=== PATIENT | male | born 1945 | race Caucasian/White ===

== ENCOUNTER → 2018-07-26 12:00 | Outpatient (CLI) | payer MEDICARE, OTHER, SELFPAY ==
[2018-07-26 13:25] LABS: Add Manual Diff / Slide Review NO; Basophils Percent Auto 0.7 % (0-2); Eosinophils Percent Auto 2.7 % (2-4); Hematocrit 39.7 % (41-53); Hemoglobin 13.4 g/dL (13.5-17.5); Lymphocytes Percent Auto 30.1 % (25-40); Mean Corpuscular HGB Conc 33.6 % (30-36); Mean Corpuscular Hemoglobin 30.8 PG (26-34); Mean Corpuscular Volume 91.6 fL (80-100); Monocytes Percent Auto 10.6 % (3-14); Neutrophils Absolute Auto 2700 /uL (3000-5900); Neutrophils Percent Auto 55.9 % (50-75); Platelet Count 181 X10^3/uL (150-400); Red Blood Cell Count 4.33 X10^6/uL (4.5-5.9); Red Cell Distribution Width 17.9 % (11.6-14.8); White Blood Cell Count 4.8 X10^3/uL (4.5-11.0)
[2018-07-26 13:43] LABS: Alanine Aminotransferase 28 IU/L (21-72); Albumin 4.1 g/dL (3.5-5.0); Albumin Globulin Ratio 1.3 (1.0-2.8); Alkaline Phosphatase 73 U/L (38-126); Aspartate Aminotransferase 28 IU/L (17-59); BUN Creatinine Ratio 14.5 (6-22); Bilirubin Total 0.5 mg/dL (0.2-1.3); Blood Urea Nitrogen 16 mg/dL (9-20); C-Reactive Protein Quant < 0.5 mg/dL (<1.0); Calcium 9.1 mg/dL (8.4-10.2); Carbon Dioxide 31 mmol/L (22-32); Chloride 103 mmol/L (98-107); Estimated Glomerular Filt Rate > 60.0 mL/min (>60); Globulin 3.2 g/dL (1.7-4.1); Glucose 100 mg/dL (80-110); HEMOLYSIS < 15 (0-50); Potassium 4.7 mmol/L (3.4-5.1); Sodium 141 mmol/L (137-145); Total Protein 7.3 g/dL (6.3-8.2)
[2018-07-26 13:46] LABS: Erythrocyte Sedimentation Rate 15 MM/HR (0-15)
== END ==
PROVIDERS: Family Provider Internal Medicine; PCP Internal Medicine; Visit Provider Internal Medicine
DX: M06.9 Rheumatoid arthritis, unspecified (principal); I10 Essential (primary) hypertension
CPT/HCPCS: 36415; 80053; 85025; 85651; 86140

== ENCOUNTER 2024-07-20 15:05 | Emergency (ER) | payer MEDICARE, OTHER, SELFPAY ==
[2024-07-20 15:14] VITALS: BP 183/84; PULSE 69; RESP 20; TEMP 36.3; O2SAT 100; BMI 40.8
--- NOTE | 2024-07-20 15:39 | ED.GENADULT ---
HPI - General Adult General Chief complaint: Abdominal Pain Stated complaint: abd px Time Seen by Provider: 07/20/24 15:26 Source: patient Mode of arrival: Ambulatory History of Present Illness HPI narrative: Patient is an 79-year-old male who is here for evaluation of generalized abdominal pain. For the past several weeks he states that he has been having issues with constipation. He has been taking stool softeners on a daily basis. He did have a bowel movement within the past 48 hours but states that it was much smaller than normal and feels like he did not have a complete bowel movement. He has had no change in his urinary issues which is urinary frequency and hesitancy. He had had 1 episode of nausea but no related vomiting. No fevers. He has had a bowel resection in the past after 2 polyps were found on a colonoscopy. He states they were noncancerous. That was approximately 15 years ago. Related Data Allergies Allergy/AdvReac Type Severity Reaction Status Date / Time No Known Drug Allergies Allergy Verified 07/20/24 15:13 Review of Systems Review of Systems Narrative: Dr Almaraz Co-Sign Statement: I was available for consultation during this patient's emergency department visit. This chart is signed by myself for administrative purposes only. I did not have direct contact with this patient during this visit. They were seen independently by the APC. Patient History Social History Smoking Status: Former smoker Smoking Status: Former smoker alcohol intake frequency: 0-2 drinks per day Alcohol type: beer Substance Use Type: does not use Exam Initial Vital Signs Initial Vital Signs: Vital Signs Temperature 97.4 F L 07/20/24 15:14 Pulse Rate 69 07/20/24 15:14 Respiratory Rate 20 07/20/24 15:14 Blood Pressure 183/84 H 07/20/24 15:14 Pulse Oximetry 100 07/20/24 15:14 Oxygen Delivery Method Room Air 07/20/24 15:14 Const General: cooperative, comfortable and No ill appearing HENKS Head: normal to inspection and normocephalic Resp Effort & Inspection: normal respiratory effort Auscultation: clear to auscultation bilaterally Cardio Rate: regular rate Rhythm: regular rhythm GI Inspection: normal to inspection and non-distended Palpation: soft, No firm, No guarding and No tender Neuro General: patient alert, patient awake and moves all extremities Extrem General: edema Course Orders Ordered: ED Orders 07/20/24 15:42 CT abdomen pelvis w con Stat 07/20/24 15:45 Complete Blood Count AUTO DIFF Stat Comprehensive Metabolic Panel Stat Lipase Stat Vital Signs Vital signs: Vital Signs - 8 hr 07/20/24 15:14 Temperature 97.4 F L Pulse Rate 69 Respiratory Rate 20 Blood Pressure 183/84 H Pulse Oximetry 100 Oxygen Delivery Method Room Air Medical Decision Making Lab Data Lab results reviewed: Yes I reviewed the patient's lab results. 07/20/24 15:45 07/20/24 15:45 Labs: Lab Results 07/20/24 Range/Units 15:45 WBC 4.8 (4.5-11.0) X10^3/uL RBC 3.74 L (4.5-5.9) X10^6/uL Hgb 11.7 L (13.5-17.5) g/dL Hct 35.3 L (41-53) % MCV 94.5 (80-100) fL MCH 31.2 (26-34) PG MCHC 33.0 (30-36) % RDW 17.3 H (11.6-14.8) % Plt Count 147 L (150-400) X10^3/uL Neut % (Auto) 72.5 (50-75) % Lymph % (Auto) 15.8 L (25-40) % [place] % (Auto) 10.0 (3-14) % Eos % (Auto) 0.8 L (2-4) % Baso % (Auto) 0.9 (0-2) % Neut # (Auto) 3500 (4371-8442) /uL Lymph # (Auto) 800 L (5239-4041) /uL [place] # (Auto) 500 (0-900) /uL Eos # (Auto) 0 (0-450) /uL Baso # (Auto) 0 (0-100) /uL Sodium 133 L (137-145) mmol/L Potassium 4.2 (3.4-5.1) mmol/L Chloride 101 (98-107) mmol/L Carbon Dioxide 26 (22-32) mmol/L BUN 10 (9-20) mg/dL Creatinine 0.94 (0.66-1.25) mg/dL Estimated GFR > 60 (>60) mL/min BUN/Creatinine Ratio 10.6 (6-22) Glucose 107 (80-110) mg/dL Calcium 9.1 (8.4-10.2) mg/dL Total Bilirubin 1.2 (0.2-1.3) mg/dL AST 34 (17-59) IU/L ALT 22 (<50) IU/L Alkaline Phosphatase 144 H (38-126) U/L Total Protein 7.8 (6.3-8.2) g/dL Albumin 3.8 (3.5-5.0) g/dL Globulin 4.0 (1.7-4.1) g/dL Albumin/Globulin Ratio 1.0 (1.0-2.8) Lipase 87 (23-300) U/L Imaging Data CT scan - abdomen/pelvis: Radiologist's Impression: PROCEDURE: CT ABDOMEN PELVIS W CON INDICATIONS: Generalized abdominal pain, history of bowel resection TECHNIQUE: After the administration of intravenous contrast, axial sections acquired from the lung bases to the pubic symphysis. Coronal and sagittal reformats were performed. For radiation dose reduction, the following was used: automated exposure control, adjustment of mA and/or kV according to patient size. COMPARISON: None. FINDINGS: Image quality: Diagnostic. Lower Chest: Mild bilateral effusions, right greater than left. ABDOMEN: Liver: No solid mass. Liver appears nodular. Gallbladder: Small dependent luminal stones without wall thickening. Biliary ducts: No biliary dilation. Pancreas: No ductal dilation. Spleen: Size is within normal limits. Adrenal Glands: 1.2 nodularity of the left adrenal gland. Kidneys and Ureters: No hydronephrosis. No solid mass. No complex renal cystic lesion which requires follow up. Stomach and Bowel: As nest Modic surgeons are present within the left colon. Within the region of postsurgical change pericolonic stranding is present. Peritoneum: Mild perihepatic and perisplenic fluid. No free air. Ventral Wall: No significant ventral hernia. Abdominal Nodes: Bilateral iliac nodes borderline/mildly enlarged the most prominent on the right measuring 1.8 cm. Vessels: Aorta and inferior vena cava are normal in size. PELVIS: Pelvic Organs: Unremarkable. Bladder: No bladder wall thickening, accounting for underdistention. Pelvic Nodes: Bilateral enlarged inguinal lymph nodes the largest measuring 1.6 cm in short axis on the left. Miscellaneous: Bilateral fat containing inguinal hernias are seen. Anasarca is present. Bones: No aggressive osseous abnormality. T12 compression deformity appearing chronic. IMPRESSION: Nodular appearance of the liver. Cannot exclude developing cirrhosis. Mild perihepatic and perisplenic fluid. No visualized free air. No obstruction. Pericolonic stranding surrounding the area of postsurgical change. This may be related to surgical intervention and recommend correlation to interval since surgery. Otherwise, superimposed inflammation should be considered. No abscess. MDM Narrative Medical decision making narrative: Patient does have a benign exam. Does not show any acute surgical abnormalities but does have findings that would be consistent with colitis. This does correspond to his presenting symptoms today. I discussed this with him. We discussed the use of stool softeners and laxatives. No indication for admission to the hospital. He was given return precautions and follow-up instructions. He expressed understanding and agreement with plan. Discharge Plan Departure Patient Disposition: Home Clinical Impression: Colitis Instructions: DI for Colitis Activity Restrictions/Additional Instructions: Recommend that you continue to take all of your medications as directed. Contact your primary care doctor for follow-up and return to the emergency department for new or worsening symptoms. Referrals: Miscellaneous,MD Wilson [Primary Care Provider] - Stand Alone Forms: Patient Portal/API
--- NOTE | 2024-07-20 15:42 | DI.CT.S_ITS ---
PROCEDURE: CT ABDOMEN PELVIS W CON INDICATIONS: Generalized abdominal pain, history of bowel resection TECHNIQUE: After the administration of intravenous contrast, axial sections acquired from the lung bases to the pubic symphysis. Coronal and sagittal reformats were performed. For radiation dose reduction, the following was used: automated exposure control, adjustment of mA and/or kV according to patient size. COMPARISON: None. FINDINGS: Image quality: Diagnostic. Lower Chest: Mild bilateral effusions, right greater than left. ABDOMEN: Liver: No solid mass. Liver appears nodular. Gallbladder: Small dependent luminal stones without wall thickening. Biliary ducts: No biliary dilation. Pancreas: No ductal dilation. Spleen: Size is within normal limits. Adrenal Glands: 1.2 nodularity of the left adrenal gland. Kidneys and Ureters: No hydronephrosis. No solid mass. No complex renal cystic lesion which requires follow up. Stomach and Bowel: As nest Modic surgeons are present within the left colon. Within the region of postsurgical change pericolonic stranding is present. Peritoneum: Mild perihepatic and perisplenic fluid. No free air. Ventral Wall: No significant ventral hernia. Abdominal Nodes: Bilateral iliac nodes borderline/mildly enlarged the most prominent on the right measuring 1.8 cm. Vessels: Aorta and inferior vena cava are normal in size. PELVIS: Pelvic Organs: Unremarkable. Bladder: No bladder wall thickening, accounting for underdistention. Pelvic Nodes: Bilateral enlarged inguinal lymph nodes the largest measuring 1.6 cm in short axis on the left. Miscellaneous: Bilateral fat containing inguinal hernias are seen. Anasarca is present. Bones: No aggressive osseous abnormality. T12 compression deformity appearing chronic. IMPRESSION: Nodular appearance of the liver. Cannot exclude developing cirrhosis. Mild perihepatic and perisplenic fluid. No visualized free air. No obstruction. Pericolonic stranding surrounding the area of postsurgical change. This may be related to surgical intervention and recommend correlation to interval since surgery. Otherwise, superimposed inflammation should be considered. No abscess. Dictated by: Evon Ulloa M.D. on 07/20/2024 at 16:35 Approved by: Evon Ulloa M.D. on 07/20/2024 at 16:40
[2024-07-20 15:54] LABS: Add Manual Diff / Slide Review NO; Basophils Absolute Auto 0 /uL (0-100); Basophils Percent Auto 0.9 % (0-2); Eosinophils Absolute Auto 0 /uL (0-450); Eosinophils Percent Auto 0.8 % (2-4); Hematocrit 35.3 % (41-53); Hemoglobin 11.7 g/dL (13.5-17.5); Lymphocytes Absolute Auto 800 /uL (1100-4500); Lymphocytes Percent Auto 15.8 % (25-40); Mean Corpuscular Hemoglobin 31.2 PG (26-34); Mean Corpuscular Volume 94.5 fL (80-100); Monocytes Absolute Auto 500 /uL (0-900); Neutrophils Absolute Auto 3500 /uL (1500-7000); Neutrophils Percent Auto 72.5 % (50-75); Platelet Count 147 X10^3/uL (150-400); Red Blood Cell Count 3.74 X10^6/uL (4.5-5.9); Red Cell Distribution Width 17.3 % (11.6-14.8); White Blood Cell Count 4.8 X10^3/uL (4.5-11.0)
[2024-07-20 16:05] LABS: Alanine Aminotransferase 22 IU/L (<50); Albumin 3.8 g/dL (3.5-5.0); Alkaline Phosphatase 144 U/L (38-126); Aspartate Aminotransferase 34 IU/L (17-59); BUN Creatinine Ratio 10.6 (6-22); Bilirubin Total 1.2 mg/dL (0.2-1.3); Blood Urea Nitrogen 10 mg/dL (9-20); Calcium 9.1 mg/dL (8.4-10.2); Carbon Dioxide 26 mmol/L (22-32); Chloride 101 mmol/L (98-107); Estimated Glomerular Filt Rate > 60 mL/min (>60); Glucose 107 mg/dL (80-110); HEMOLYSIS < 15 (0-50); Lipase 87 U/L (23-300); Potassium 4.2 mmol/L (3.4-5.1); Sodium 133 mmol/L (137-145); Total Protein 7.8 g/dL (6.3-8.2)
[2024-07-20 17:36] VITALS: BP 168/81; PULSE 60; RESP 18; O2SAT 97
== END 2024-07-20 17:35 | disposition home or self-care (01) ==
PROVIDERS: Emergency Provider Emergency Medicine; Family Provider Internal Medicine
DX: K52.9 Noninfective gastroenteritis and colitis, unspecified (principal); K59.00 Constipation, unspecified; R11.0 Nausea
CPT/HCPCS: 36415; 74177; 80053; 83690; 85025; 99283; 99284; Q9967

== ENCOUNTER 2024-08-30 11:42 | Emergency (ER) | payer MEDICARE, OTHER, SELFPAY ==
[2024-08-30] VITALS (12 sets, daily range): BP systolic 143–185; BP diastolic 72–101; PULSE 51–72; RESP 11–25; TEMP 36.5; O2SAT 94–99; BMI 39.9
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
[2024-08-30 13:08] LABS: Add Manual Diff / Slide Review NO; Basophils Absolute Auto 0 /uL (0-100); Eosinophils Absolute Auto 100 /uL (0-450); Eosinophils Percent Auto 1.6 % (2-4); Hematocrit 35.2 % (41-53); Hemoglobin 11.7 g/dL (13.5-17.5); Lymphocytes Absolute Auto 1000 /uL (1100-4500); Lymphocytes Percent Auto 25.9 % (25-40); Mean Corpuscular HGB Conc 33.4 % (30-36); Mean Corpuscular Hemoglobin 30.3 PG (26-34); Mean Corpuscular Volume 90.6 fL (80-100); Monocytes Absolute Auto 400 /uL (0-900); Monocytes Percent Auto 10.4 % (3-14); Neutrophils Absolute Auto 2300 /uL (1500-7000); Neutrophils Percent Auto 61.1 % (50-75); Platelet Count 141 X10^3/uL (150-400); Red Blood Cell Count 3.88 X10^6/uL (4.5-5.9); Red Cell Distribution Width 15.3 % (11.6-14.8); White Blood Cell Count 3.7 X10^3/uL (4.5-11.0)
[2024-08-30 13:10] LABS: Alanine Aminotransferase 20 IU/L (<50); Albumin 3.8 g/dL (3.5-5.0); Alkaline Phosphatase 153 U/L (38-126); Aspartate Aminotransferase 34 IU/L (17-59); BUN Creatinine Ratio 12.1 (6-22); Bilirubin Total 1.2 mg/dL (0.2-1.3); Blood Urea Nitrogen 11 mg/dL (9-20); Carbon Dioxide 23 mmol/L (22-32); Chloride 104 mmol/L (98-107); Estimated Glomerular Filt Rate > 60 mL/min (>60); Globulin 3.8 g/dL (1.7-4.1); Glucose 112 mg/dL (80-110); Potassium 4.2 mmol/L (3.4-5.1); Sodium 136 mmol/L (137-145); Total Protein 7.6 g/dL (6.3-8.2)
[2024-08-30 13:20] LABS: HEMOLYSIS < 15 (0-50); NT-proBNP (BNP-Adult 18+) 760 pg/mL (<450)
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
--- NOTE | 2024-08-30 14:00 | DI.RAD.S_ITS ---
PROCEDURE: XR CHEST 1V INDICATIONS: short of breath TECHNIQUE: One view of the chest was acquired. COMPARISON: None. FINDINGS: Surgical changes and devices: Triple lead left-sided pacemaker present. Right atrial and ventricle leads appear appropriately positioned, however, 3rd lead is noted at the cavoatrial junction Lungs and pleura: Cardiomegaly and moderate vascular congestion. Right small pleural effusion with basilar atelectasis and or infiltrate. No pneumothorax Mediastinum: Mediastinal contours appear normal. Heart size is normal. Bones and chest wall: No suspicious bony lesions. Overlying soft tissues appear unremarkable. IMPRESSION: Unusual positioning of 3rd pacemaker lead at the cavoatrial junction. Consider cardiology consult to assess. Right pleural effusion with associated atelectasis and or infiltrate Approved by: Swapnil Leiva M.D. on 08/30/2024 at 14:32
--- NOTE | 2024-08-30 14:10 | EKG_ITS ---
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
[2024-08-30] MEDS: FUROSEMIDE 40 MG/4 ML VIAL IV (14:13)
[2024-08-30 14:24] LABS: Creatine Kinase 36 U/L (55-170)
[2024-08-30 14:37] LABS: Troponin I 0.014 ng/mL (0.01-0.034)
== END 2024-08-30 15:34 | disposition home or self-care (01) ==
PROVIDERS: Emergency Provider Emergency Medicine; Family Provider Internal Medicine
DX: R60.0 Localized edema (principal); R06.02 Shortness of breath; Z95.0 Presence of cardiac pacemaker; R10.9 Unspecified abdominal pain; Z79.82 Long term (current) use of aspirin
CPT/HCPCS: 71045; 80053; 81003; 82550; 83880; 84484; 85025; 93005; 99283; J1940

== ENCOUNTER 2024-09-02 15:19 | Inpatient (IN) | payer MEDICARE, OTHER, SELFPAY ==
[2024-09-02] VITALS (14 sets, daily range): BP systolic 112–190; BP diastolic 67–98; PULSE 53–75; RESP 14–26; TEMP 36.2–36.4; O2SAT 94–99; BMI 37.8
--- NOTE | 2024-09-02 15:39 | DI.RAD.S_ITS ---
PROCEDURE: XR CHEST 1V INDICATIONS: Shortness of breath TECHNIQUE: One view of the chest was acquired. COMPARISON: [facility], CT, CT ABDOMEN PELVIS W CON, 07/20/2024, 16:15. [facility], CR, XR CHEST 1V, 08/30/2024, 14:02. FINDINGS: Surgical changes and devices: A pacer device is seen. The leads are seen in stable positions. Lungs and pleura: On this semiupright portable chest examination, no large pneumothorax is seen. There is blunting of the right costophrenic angle. No focal infiltrates are seen. Generalized interstitial prominence can be seen. Mediastinum: Mediastinal contours appear normal. Heart size is moderately enlarged. Bones and chest wall: No suspicious bony lesions. Age-appropriate bony degenerative changes are seen. Overlying soft tissues appear unremarkable. IMPRESSION: Cardiomegaly with interstitial prominence and a right-sided pleural effusion. These imaging findings are progressed compared to the prior. CHF is suspected. Dictated by: Joel Linares M.D. on 09/02/2024 at 15:08 Approved by: Joel Linares M.D. on 09/02/2024 at 15:09
--- NOTE | 2024-09-02 15:57 | PC.NURSE ---
bilateral hands dark purple/red, warm, easily blancheable, cap refill <2seconds
--- NOTE | 2024-09-02 15:59 | EKG_ITS ---
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
--- NOTE | 2024-09-02 16:13 | PC.NURSE ---
Bilateral LE/Feet dark purple/red with pitting edema 2+ R>L with small weeping ulceration to R [place] with clear yellow serous drainage weeping & soaking pants and shoes. Bilateral Pedal Pulses Doppler only
[2024-09-02 16:15] LABS: Add Manual Diff / Slide Review NO; Basophils Absolute Auto 0 /uL (0-100); Basophils Percent Auto 0.8 % (0-2); Eosinophils Absolute Auto 100 /uL (0-450); Eosinophils Percent Auto 1.3 % (2-4); Hematocrit 38.3 % (41-53); Hemoglobin 12.6 g/dL (13.5-17.5); Lymphocytes Absolute Auto 1400 /uL (1100-4500); Lymphocytes Percent Auto 29.8 % (25-40); Mean Corpuscular Hemoglobin 29.8 PG (26-34); Mean Corpuscular Volume 90.5 fL (80-100); Monocytes Absolute Auto 400 /uL (0-900); Monocytes Percent Auto 8.1 % (3-14); Neutrophils Absolute Auto 2900 /uL (1500-7000); Platelet Count 149 X10^3/uL (150-400); Red Blood Cell Count 4.23 X10^6/uL (4.5-5.9); Red Cell Distribution Width 15.6 % (11.6-14.8); White Blood Cell Count 4.9 X10^3/uL (4.5-11.0)
[2024-09-02 16:21] LABS: INR 1.3 (0.9-1.3); Prothrombin Time 14.6 SECONDS (9.4-12.5)
[2024-09-02 16:24] LABS: Alanine Aminotransferase 20 IU/L (<50); Albumin 4.3 g/dL (3.5-5.0); Alkaline Phosphatase 174 U/L (38-126); Aspartate Aminotransferase 36 IU/L (17-59); Bilirubin Total 1.7 mg/dL (0.2-1.3); Blood Urea Nitrogen 13 mg/dL (9-20); Calcium 9.3 mg/dL (8.4-10.2); Carbon Dioxide 27 mmol/L (22-32); Chloride 101 mmol/L (98-107); Estimated Glomerular Filt Rate > 60 mL/min (>60); Globulin 4.1 g/dL (1.7-4.1); Glucose 108 mg/dL (80-110); HEMOLYSIS < 15 (0-50); Lactate (Lactic Acid) 1.5 mmol/L (0.7-2.1); Potassium 3.8 mmol/L (3.4-5.1); Sodium 137 mmol/L (137-145); Total Protein 8.4 g/dL (6.3-8.2)
[2024-09-02 16:36] LABS: Troponin I 0.019 ng/mL (0.01-0.034)
--- NOTE | 2024-09-02 17:19 | ED_ITS ---
HPI - General Adult General Chief complaint: Shortness of Breath/Dyspnea Stated complaint: can't pee, SOB Time Seen by Provider: 09/02/24 15:33 Source: patient Mode of arrival: Ambulatory History of Present Illness HPI narrative: 79-year-old gentleman with pacemaker placed for bradycardia, lower extremity edema does not carry a diagnosis of congestive heart failure. Was seen in the emergency department on August 30 and felt clinically to be in congestive heart failure. Patient lives in [place] and is trying to work his way back home. He states that he sees his television cable installer twice a day your for pacemaker updates however looking in his pacer download it looks like it may have been since 2021 since he has actually seen the doctor. He notes that his pacemaker downloads every week. Related Data Home Medications Medication Instructions Recorded Confirmed acetaminophen 325 mg tablet 650 mg PO Q6H PRN Pain (Scale 09/02/24 09/02/24 (Tylenol) Score 1-3) aspirin 325 mg tablet 325 mg PO DAILY 09/02/24 09/02/24 Previous Rx's Medication Instructions Recorded furosemide 20 mg tablet (Lasix) 20 mg PO DAILY #14 tabs 08/30/24 Allergies Allergy/AdvReac Type Severity Reaction Status Date / Time No Known Drug Allergies Allergy Verified 09/02/24 15:38 Review of Systems Review of Systems Narrative: Pertinent positive and negative findings as per HPI Patient History Medical History Pacemaker Social History household members: spouse Smoking Status: Former smoker alcohol intake: current Smoking Status: Former smoker tobacco type: cigarettes alcohol intake frequency: 0-2 drinks per day Alcohol type: beer Substance Use Type: does not use Exam Initial Vital Signs Initial Vital Signs: Vital Signs Temperature 97.6 F 09/02/24 15:24 Pulse Rate 75 09/02/24 15:24 Respiratory Rate 22 09/02/24 15:24 Blood Pressure 190/90 H 09/02/24 15:24 Pulse Oximetry 94 09/02/24 15:24 Oxygen Delivery Method Room Air 09/02/24 15:24 General: Chronically ill-appearing, in no acute distress while at rest. Able to give a complete and coherent history. HEENT: Moist mucous membranes, normal sclera with reactive pupils, Neck: +JVD, supple Respiratory: Lungs with crackles to mid lung lopez, no wheezing Cardiac: Regular rate and rhythm no murmurs no bruits Abdomen: Soft, nontender, good bowel tones, no flank pain Skin: Anasarca to upper abdomen Neurologic: Grossly neurologically intact with no obvious asymmetries or abnormalities Extremities: Chronic venous stasis changes. 3+ edema to the pelvis 2+ extending up to the almost nipples Psych: Cooperative, appropriate insight and affect Course Orders Ordered: Acetaminophen (Acetaminophen 325 Mg Tablet) 650 mg PO Q6H PRN PRN Reason: Fever/Mild Pain (1-3) Enoxaparin Sodium (Enoxaparin 40 Mg/0.4 Ml Syringe) 40 mg SUBCUT DAILY [facility] Furosemide 60 mg/ Sodium (Chloride) 56 mls @ 112 mls/hr IV 0700,1700 [facility] Last Admin: 09/03/24 07:45 Dose: 112 mls/hr Documented By: HARIS Naloxone HCl (Naloxone 0.4 Mg/Ml Vial) 0.2 mg IV Q2MIN PRN PRN Reason: Opiate Reversal Discontinued Medications Furosemide 80 mg/ Sodium (Chloride) 58 mls @ 116 mls/hr IV NOW ONE Stop: 09/02/24 17:37 Last Infusion: 09/02/24 18:20 Dose: Infused Documented By: Admin: 09/02/24 17:49 Dose: 116 mls/hr Documented By: SY Lidocaine HCl (Lidocaine 2% (Glydo) 6 Ml Gel) 6 ml TOP NOW ONE Stop: 09/02/24 18:17 Last Admin: 09/02/24 18:20 Dose: 6 ml Documented By: SY Vital Signs Vital signs: Vital Signs - 8 hr 09/02/24 15:24 09/02/24 15:33 09/02/24 16:00 Temperature 97.6 F Pulse Rate 75 68 67 Respiratory Rate 22 25 H 26 H Blood Pressure 190/90 H Pulse Oximetry 94 96 98 Oxygen Delivery Method Room Air Room Air 09/02/24 16:01 09/02/24 16:30 09/02/24 16:31 Temperature Pulse Rate 57 L 53 L Respiratory Rate 14 15 Blood Pressure 166/98 H Pulse Oximetry 98 98 Oxygen Delivery Method Room Air Room Air 09/02/24 16:31 09/02/24 17:00 09/02/24 17:00 Temperature Pulse Rate 65 Respiratory Rate 20 Blood Pressure 151/67 H 142/95 H Pulse Oximetry 95 Oxygen Delivery Method Room Air 09/02/24 17:30 09/02/24 17:31 Temperature Pulse Rate 68 Respiratory Rate 16 Blood Pressure 172/96 H Pulse Oximetry 98 Oxygen Delivery Method Room Air Medical Decision Making Lab Data 09/03/24 04:43 09/03/24 04:43 Labs: Lab Results 09/02/24 Range/Units 15:40 WBC 4.9 (4.5-11.0) X10^3/uL RBC 4.23 L (4.5-5.9) X10^6/uL Hgb 12.6 L (13.5-17.5) g/dL Hct 38.3 L (41-53) % MCV 90.5 (80-100) fL MCH 29.8 (26-34) PG MCHC 33.0 (30-36) % RDW 15.6 H (11.6-14.8) % Plt Count 149 L (150-400) X10^3/uL Neut % (Auto) 60.0 (50-75) % Lymph % (Auto) 29.8 (25-40) % [place] % (Auto) 8.1 (3-14) % Eos % (Auto) 1.3 L (2-4) % Baso % (Auto) 0.8 (0-2) % Neut # (Auto) 2900 (8000-3333) /uL Lymph # (Auto) 1400 (4781-0614) /uL [place] # (Auto) 400 (0-900) /uL Eos # (Auto) 100 (0-450) /uL Baso # (Auto) 0 (0-100) /uL PT 14.6 H (9.4-12.5) SECONDS INR 1.3 (0.9-1.3) Sodium 137 (137-145) mmol/L Potassium 3.8 (3.4-5.1) mmol/L Chloride 101 (98-107) mmol/L Carbon Dioxide 27 (22-32) mmol/L BUN 13 (9-20) mg/dL Creatinine 1.00 (0.66-1.25) mg/dL Estimated GFR > 60 (>60) mL/min BUN/Creatinine Ratio 13.0 (6-22) Glucose 108 (80-110) mg/dL Lactate 1.5 (0.7-2.1) mmol/L Calcium 9.3 (8.4-10.2) mg/dL Total Bilirubin 1.7 H (0.2-1.3) mg/dL AST 36 (17-59) IU/L ALT 20 (<50) IU/L Alkaline Phosphatase 174 H (38-126) U/L Troponin I 0.019 (0.01-0.034) ng/mL NT-Pro-B Natriuret Pep 1080 H (<450) pg/mL Total Protein 8.4 H (6.3-8.2) g/dL Albumin 4.3 (3.5-5.0) g/dL Globulin 4.1 (1.7-4.1) g/dL Albumin/Globulin Ratio 1.0 (1.0-2.8) MDM Narrative Medical decision making narrative: CC: Increased edema and exertional dyspnea Complicating co-morbidities: Patient has a ventricular set pacemaker, was started on 20 mg of Lasix 4 days ago takes no other medications Data collected from: patient Social determinants of health that may influence the patients condition: Spends half his time in [place] half his time in [place], his cardiac care is in [place]. He states that he sees his television cable installer regularly however it looks like his pacemaker has not been downloaded by a television cable installer for complete evaluation and clearing data since 2021 Medical records reviewed: Recent ER note is reviewed Differential considered: Congestive heart failure, acute coronary syndrome, rate related issues, chronic atrial fibrillation Exam documented above, pertinent findings include: At rest patient is able to speak in full sentences. Significant volume overload with anasarca. Not requiring oxygen at rest however severe exertional dyspnea Lab Test results independently reviewed as above. Pertinent findings: CBC shows no significant abnormalities and similar to comparison numbers from August 30 Chemistries are notable for appropriate renal function. Bilirubin slightly elevated at 1.7 alk-phos slightly elevated at 174. Significant increase in BNP from 760 4 days ago to 1080 today. Troponin is undetected Independently reviewed EKG: Underlying rhythm is atrial fibrillation. Pacer spikes are appreciated Imaging studies independently reviewed: Chest x-ray shows cardiomegaly, cephalization, interstitial prominence bibasilar costophrenic angle blunting suggesting developing effusions Consultations: Discussed with Dr. Mckeon, cardiology. Pacer is interrogated and she reviewed findings. Notes that it is a ventricular paced pacemaker there is no atrial drive it is functioning as programmed. It does allow relative bradycardia with rates as low as the mid 30s in his high as the 100 range Treatments: 80 mg of Lasix is given in the emergency depart Discussion: 79-year-old gentleman with florid congestive heart failure and anasarca without evidence of obstructive uropathy or renal failure. Four days ago significantly less impressive he has not responding to 20 mg of oral Lasix. He has not currently on prescription medications. I suspect he has not seen his television cable installer or other medical providers beyond his recent ER visits. 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 He is willing to stay for hospitalization to help with diuresis. Care is reviewed with Dr. Logan. We will need continued diuresis, we will benefit from echocardiogram. At some point does need follow up with his primary television cable installer for discussion of management of his pacemaker and appropriate treatment of his newly diagnosed congestive heart failure. At this point there is no evidence of acute coronary syndrome or recent NSTEMI/STEMI. Findings reviewed with the patient and he is agreeable to hospitalization. Discharge Plan Departure Patient Disposition: Admitted As Inpatient Clinical Impression: Shortness of breath Admit Date/Time: 09/02/24 18:07 Admit Provider: Lee Logan
[2024-09-02 17:40] LABS: NT-proBNP (BNP-Adult 18+) 1080 pg/mL (<450)
[2024-09-02] MEDS: FUROSEMIDE 80 MG in SODIUM CHLORIDE 0.9% 50 ML 116 MG IV (17:49)
[2024-09-02] MEDS: LIDOCAINE 2% (GLYDO) 6 ML GEL TOP (18:20)
--- NOTE | 2024-09-02 18:27 | P.HP_ITS ---
History of Present Illness History of Present Illness Date Patient Seen: 09/02/24 Time Patient Seen: 18:27 Chief complaint: isn't peeing as much, SOB Narrative: The patient was an 79-year-old male with a history of pacemaker for bradycardia as well as probable heart failure. He was had increased volume retention since last summer. He was seen in the ED several days ago and diuresed and given oral diuretics. He was followed by Cardiology in [place], where he spends the hub[place]. The patient presents now with inability to urinate, constipation, as well as increased edema of legs and weeping. He has a lot of dyspnea on exertion but denies prominent orthopnea. No chest pain or palpitations. He was not had an echo in this area, and there is no echo data available to review for an indication of his cardiac function. He denies recent missed medications although it is unclear if he really is taking regular medications for his heart. He was given oral Lasix 3 days ago in the ED to take home and continue diuresis. He spends his hubbard in [place], and lives on [facility] the rest of the year. 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 He was full resuscitation, this is confirmed today. A CT scan was obtained in the ED and July 20, notable for bilateral pleural effusions. He does have chronic constipation and this is recently been getting worse. He also has symptoms of urinary retention including difficulty urinating and prolonged time to urinate. No hematuria, or dysuria. He did have a colonoscopy in 2004 with polyps removed. He notes he was a difficult time getting his stool to come out and I regular basis and to have adequate volume. [facility] Medical History Pacemaker Social History Smoking Status: Former smoker Meds Home Medications and Allergies Home Medications Medication Instructions Recorded Confirmed Type furosemide 20 mg tablet (Lasix) 20 mg PO DAILY #14 tabs 08/30/24 09/02/24 Rx Allergies Allergy/AdvReac Type Severity Reaction Status Date / Time No Known Drug Allergies Allergy Verified 09/02/24 15:38 Review of Systems Review of Systems Narrative: Recent fevers, chills, or rhinorrhea. No rectal bleeding. All else reviewed and otherwise unremarkable. Exam Vital Signs (past 8 hours): - 09/02/24 15:24 09/02/24 15:33 09/02/24 16:00 Temperature 97.6 F Pulse Rate 75 68 67 Respiratory Rate 22 25 H 26 H Blood Pressure 190/90 H Pulse Oximetry 94 96 98 Oxygen Delivery Method Room Air Room Air 09/02/24 16:01 09/02/24 16:30 09/02/24 16:31 Temperature Pulse Rate 57 L 53 L Respiratory Rate 14 15 Blood Pressure 166/98 H Pulse Oximetry 98 98 Oxygen Delivery Method Room Air Room Air 09/02/24 16:31 09/02/24 17:00 09/02/24 17:00 Temperature Pulse Rate 65 Respiratory Rate 20 Blood Pressure 151/67 H 142/95 H Pulse Oximetry 95 Oxygen Delivery Method Room Air 09/02/24 17:30 09/02/24 17:31 09/02/24 18:00 Temperature Pulse Rate 68 66 Respiratory Rate 16 14 Blood Pressure 172/96 H Pulse Oximetry 98 97 Oxygen Delivery Method Room Air 09/02/24 18:01 09/02/24 18:01 Temperature Pulse Rate 69 Respiratory Rate 21 Blood Pressure 155/70 H Pulse Oximetry 97 Oxygen Delivery Method Oxygen Delivery Method Room Air Narrative Exam Narrative: NAD, alert and oriented, fluent speech, calm. Some dyspnea on prolonged talking. Left chest subcutaneous pacemaker box is noted. Normocephalic skull, EOMI, anicteric sclera, symmetric pupils. Oropharynx unremarkable, no droop. Neck supple, midline trachea, no adenopathy. Lungs clear, normal rate and effort. Heart regular, no murmur gallop or rub. Abdomen is soft, non distended and non tender. Extremities are notable for gross edema with pitting and oozing. Skin is free of rash or lesions. Joints are not swollen or deformed. Judgment appears to be normal. Objective ECG Impression: Atrial fibrillation with slow ventricular response Left axis deviation Possible Anterior infarct , age undetermined Imaging Multiple studies:: Radiologist's impression: Chest x-ray September 02: Cardiomegaly with interstitial prominence and a right-sided pleural effusion. These imaging findings are progressed compared to the prior. CHF is suspected. Abdomen and pelvis CT on July 20: Lower Chest: Mild bilateral effusions, right greater than left. Nodular appearance of the liver. Cannot exclude developing cirrhosis. Mild perihepatic and perisplenic fluid. No visualized free air. No obstruction. Pericolonic stranding surrounding the area of postsurgical change. This may be related to surgical intervention and recommend correlation to interval since surgery. Otherwise, superimposed inflammation should be considered. No abscess. Labs 09/02/24 15:40 09/02/24 15:40 Labs: Laboratory Results - last 24 hr 09/02/24 15:40 WBC 4.9 RBC 4.23 L Hgb 12.6 L Hct 38.3 L MCV 90.5 MCH 29.8 MCHC 33.0 RDW 15.6 H Plt Count 149 L Neut % (Auto) 60.0 Lymph % (Auto) 29.8 [place] % (Auto) 8.1 Eos % (Auto) 1.3 L Baso % (Auto) 0.8 Neut # (Auto) 2900 Lymph # (Auto) 1400 [place] # (Auto) 400 Eos # (Auto) 100 Baso # (Auto) 0 PT 14.6 H INR 1.3 Sodium 137 Potassium 3.8 Chloride 101 Carbon Dioxide 27 BUN 13 Creatinine 1.00 Estimated GFR > 60 BUN/Creatinine Ratio 13.0 Glucose 108 Lactate 1.5 Calcium 9.3 Total Bilirubin 1.7 H AST 36 ALT 20 Alkaline Phosphatase 174 H Troponin I 0.019 NT-Pro-B Natriuret Pep 1080 H Total Protein 8.4 H Albumin 4.3 Globulin 4.1 Albumin/Globulin Ratio 1.0 Assessment & Plan Assessment & Plan narrative: 1. Acute heart failure with anasarca. Unclear what systolic and diastolic function are. Present on admission and active. 2. Atrial fibrillation, rate controlled. Present on admission and active. 3. Anasarca, present on admission and active. 4. Urinary retention, present on admission and active. 5. Abnormal liver function tests with a bilirubin of 1.7, present on admission and active. 6. Pacemaker, present on admission and stable. Plan: -we will diurese with Lasix 60 IV q.12 hours. -monitor electrolytes. -Ureña catheter for retention and diurese. -we will start Flomax tomorrow. -2D echo to assess cardiac function. -monitor rate control and obtain records from [place]. Inpatient status, anticipate a 2 midnight length of stay. Full resuscitation, confirmed today. Proxy decision maker his domestic partner. Time-Based Coding :: 35 min spent with patient and on the chart (including review of chart, obtaining history, exam, reviewing outside data, placing orders, documenting exam and treatment plan, and counseling patient) on 09/02. Quality MIPS - Admit I confirm the patient?s Advance Care Plan is present, Code status is documented, Surrogate decision maker is in patient?s record [If Yes, STOP here]: Yes MIPS - Meds 'Current medications' to include all prescriptions, [id number] products, herbals, cannabis/cannabidiol products, and vitamin/mineral/dietary (nutritional) supplements. I have utilized all available resources to obtain, update, or review the patient?s current medications. [If Yes, STOP here]: Yes
--- NOTE | 2024-09-02 18:36 | DI.ECHO.S_ITS ---
[place] [facility] : : [address] : : [place] : : [id number] : : Phone: [phone] Echocardiogram Report + + :Name: ROXANNE VIGIL Study Date: 09/03/2024 Height: 70 in : :[facility] ReadingLocation: Weight: 278 lb : : Gender: Male BSA: 2.4 m2 : :: 1945 Age: 79 yrs BP: 134/67 mmHg: :Reason For Study: CONGESTIVE HEART FAILURE : :Ordering Physician: MALLORIE, : :GABRIEL Zavala Performed By: Lori Mccray : :Referring: GABRIEL NOBLES : + + Interpretation Summary The left ventricle is normal in size. Left ventricular systolic function is normal. The ejection fraction is estimated to be 55-60%. Septal motion is consistent with conduction abnormality. The interventricular septum is flattened, consistent with a right ventricular pressure/volume condition. The right ventricle is mildly dilated. The right ventricular systolic function is normal. The right ventricular systolic pressure is estimated to be at least 65 mmHg based on an estimated right atrial pressure of 15 mm Hg. The inter-atrial septum bows toward the left atrium consistent with high right atrial pressure. There is moderate tricuspid regurgitation. The aortic root is normal size. Procedure: A two-dimensional transthoracic echocardiogram with color flow and Doppler was performed. The study quality was technically adequate. There is no prior echocardiogram noted for this patient. The patient had occasional PVCs during the exam. The heart rate ranged between 48-62 bpm during the study. Left Ventricle: The left ventricle is normal in size. Left ventricular wall thickness is mildly increased. Left ventricular systolic function is normal. The ejection fraction is estimated to be 55-60%. Septal motion is consistent with conduction abnormality. The interventricular septum is flattened, consistent with a right ventricular pressure/volume condition. Right Ventricle: The right ventricle is mildly dilated. The right ventricular systolic function is normal. Atria: The left atrial size is normal. The inter-atrial septum bows toward the left atrium consistent with high right atrial pressure. The right atrium is mildly dilated. There is a catheter/pacemaker lead seen in the right atrium. There is no Doppler evidence for an interatrial shunt. Mitral Valve: The mitral valve is normal in structure and function. Aortic Valve: The aortic valve is trileaflet. The aortic valve opens well. There is no aortic valve stenosis. No aortic regurgitation is present. Tricuspid Valve: The tricuspid valve leaflets are thin and pliable. There is moderate tricuspid regurgitation. The right ventricular systolic pressure is estimated to be at least 65 mmHg based on an estimated right atrial pressure of 15 mm Hg. Pulmonic Valve: The pulmonic valve is not well seen, but is grossly normal. There is mild pulmonic regurgitation. Great Vessels: The aortic root is normal size. The dimensions of the ascending aorta are normal. The IVC is dilated (diameter is greater than 2.1 cm) and it collapses less than 50% with a sniff. This suggests a high right atrial pressure of 15 mm Hg. Pericardium/ Pleura There is no pericardial effusion. There is no pleural effusion. MMode/2D Measurements & Calculations LVIDd: 5.3 cm LVOT diam: 2.0 cm LVIDs: 3.8 cm Ao root diam: 3.7 cm FS: 28.6 % asc Aorta Diam: 3.3 cm EPSS: 0.96 cm Ao Arch Diam (Prox Trans): 3.2 cm IVSd: 1.1 cm LVPWd: 1.3 cm LV carrasco. diameter/BSA (cm/m^2): 2.2 LV sys. diameter/BSA (cm/m^2): 1.6 LA A2 area: 23.8 cm2 RA long axis: 6.6 cm LA A4 area: 23.9 cm2 RA area: 25.7 cm2 LA length (vol): 6.4 cm RA vol: 84.9 ml LA vol: 75.9 ml RA : 35.4 ml/m2 LA vol index: 31.6 ml/m2 IVC diam: 2.9 cm RVD1 (basal): 4.5 cm RVD2 (mid): 4.4 cm TAPSE: 1.8 cm Doppler Measurements & Calculations Ao V2 max: 157.8 cm/sec LVOT Max [place]: 88.6 cm/sec Ao V2 mean: 112.2 cm/sec LV V1 max P.1 mmHg Ao max P.0 mmHg LV V1 VTI: 18.7 cm Ao mean P.5 mmHg PETER(I,D): 1.8 cm2 Ao V2 VTI: 33.7 cm PETER(V,D): 1.8 cm2 sev ratio: 0.55 PETER indexed to BSA (cm^2/m^2): 0.75 MV E max indio: 106.3 cm/sec TR max indio: 353.2 cm/sec MV A max indio: 24.1 cm/sec TR max P.9 mmHg MV E/A: 4.4 PA V2 max: 97.7 cm/sec Med Peak E' [place]: 6.9 cm/sec PA V2 mean: 62.3 cm/sec E/E' med: 15.4 PA mean P.8 mmHg Lat Peak E' [place]: 10.0 cm/sec PA pr(Accel): 53.3 mmHg E/E' lat: 10.6 E/e' average: 13.0 MV dec time: 0.19 sec SV(LVOT): 60.9 ml Reading Physician:08:40 AM
--- NOTE | 2024-09-02 19:34 | PC.NURSE ---
Received patient from ED to room 223 at 1903. He is A&OX4. +3 edema to BLE's, WYATT, weeping. Ureña in place draining clear pale yellow urine. He is settled into bed, telemetry placed. Endorsed admission to oncoming RN.
[2024-09-03] VITALS: BP 146/71; PULSE 55; RESP 14; TEMP 36.1; O2SAT 94
[2024-09-03 04:00] VITALS: BP 134/67; PULSE 54; RESP 22; TEMP 36.2; O2SAT 91
[2024-09-03 05:06] LABS: Add Manual Diff / Slide Review NO; Basophils Absolute Auto 0 /uL (0-100); Basophils Percent Auto 0.8 % (0-2); Eosinophils Absolute Auto 100 /uL (0-450); Eosinophils Percent Auto 1.7 % (2-4); Hematocrit 34.5 % (41-53); Hemoglobin 11.5 g/dL (13.5-17.5); Lymphocytes Absolute Auto 1100 /uL (1100-4500); Lymphocytes Percent Auto 24.6 % (25-40); Mean Corpuscular HGB Conc 33.3 % (30-36); Mean Corpuscular Hemoglobin 30.1 PG (26-34); Mean Corpuscular Volume 90.2 fL (80-100); Monocytes Absolute Auto 500 /uL (0-900); Monocytes Percent Auto 10.7 % (3-14); Neutrophils Absolute Auto 2700 /uL (1500-7000); Neutrophils Percent Auto 62.2 % (50-75); Platelet Count 136 X10^3/uL (150-400); Red Blood Cell Count 3.83 X10^6/uL (4.5-5.9); Red Cell Distribution Width 15.5 % (11.6-14.8); White Blood Cell Count 4.4 X10^3/uL (4.5-11.0)
[2024-09-03 05:35] LABS: Troponin I 0.026 ng/mL (0.01-0.034)
[2024-09-03 05:49] LABS: Blood Urea Nitrogen 12 mg/dL (9-20); Calcium 8.9 mg/dL (8.4-10.2); Carbon Dioxide 28 mmol/L (22-32); Chloride 101 mmol/L (98-107); Estimated Glomerular Filt Rate > 60 mL/min (>60); Glucose 100 mg/dL (80-110); HEMOLYSIS < 15 (0-50); Potassium 3.8 mmol/L (3.4-5.1); Sodium 135 mmol/L (137-145)
--- NOTE | 2024-09-03 07:29 | PM.PN.1 ---
Subjective Subjective Interval history: Admitted with heart failure and urinary retention. S: He feels a little bit better today. He was diuresing well. He has a Ureña catheter in place for diuresis and was having some retention symptoms. He was constipated. Exam Vital Signs (past 8 hours): - 09/03/24 00:00 09/03/24 04:00 Temperature 97.0 F L 97.1 F L Pulse Rate 55 L 54 L Respiratory Rate 14 22 Blood Pressure 146/71 H 134/67 Pulse Oximetry 94 91 Oxygen Flow Rate 0 0 Oxygen Delivery Method Room Air Oxygen Flow Rate 0 Narrative Exam Narrative: NAD, alert and oriented. Fluent speech. O2, N/C. Lungs are clear, normal rate and effort. Heart is regular, no murmur gallop or rub. Abdomen is soft, non distended. Extremities: pitting edema. Objective Labs 09/03/24 04:43 09/03/24 04:43 Labs: Laboratory Results - last 24 hr 09/02/24 09/03/24 15:40 04:43 WBC 4.9 4.4 L RBC 4.23 L 3.83 L Hgb 12.6 L 11.5 L Hct 38.3 L 34.5 L MCV 90.5 90.2 MCH 29.8 30.1 MCHC 33.0 33.3 RDW 15.6 H 15.5 H Plt Count 149 L 136 L Neut % (Auto) 60.0 62.2 Lymph % (Auto) 29.8 24.6 L [place] % (Auto) 8.1 10.7 Eos % (Auto) 1.3 L 1.7 L Baso % (Auto) 0.8 0.8 Neut # (Auto) 2900 2700 Lymph # (Auto) 1400 1100 [place] # (Auto) 400 500 Eos # (Auto) 100 100 Baso # (Auto) 0 0 PT 14.6 H INR 1.3 Sodium 137 135 L Potassium 3.8 3.8 Chloride 101 101 Carbon Dioxide 27 28 BUN 13 12 Creatinine 1.00 0.92 Estimated GFR > 60 > 60 BUN/Creatinine Ratio 13.0 13.0 Glucose 108 100 Lactate 1.5 Calcium 9.3 8.9 Total Bilirubin 1.7 H AST 36 ALT 20 Alkaline Phosphatase 174 H Troponin I 0.019 0.026 NT-Pro-B Natriuret Pep 1080 H Total Protein 8.4 H Albumin 4.3 Globulin 4.1 Albumin/Globulin Ratio 1.0 PFSH Medical History Pacemaker Social History household members: spouse Smoking Status: Former smoker alcohol intake: current Assessment & Plan Assessment & Plan narrative: 1. Acute heart failure with anasarca. Unclear what systolic and diastolic function are. Present on admission and active. 2. Atrial fibrillation, rate controlled. Present on admission and active. 3. Anasarca, present on admission and active. 4. Urinary retention, present on admission and active. 5. Abnormal liver function tests with a bilirubin of 1.7, present on admission and active. 6. Pacemaker, present on admission and stable. Plan: -continue to diurese with Lasix 60 IV q.12 hours. -start Flomax daily -Dulcolax suppository for constipation -review echo Inpatient status, anticipate a 2 midnight length of stay. Full resuscitation, confirmed today. Proxy decision maker his domestic partner. DELFIN: 09/04. Home. Time-Based Coding :: [TOTAL MINUTES] spent with patient and on the chart (including review of chart, obtaining history, exam, reviewing outside data, placing orders, documenting exam and treatment plan, and counseling patient) on [DATE]. Quality VTE Deep Vein Thrombosis/Pulmonary Embolism Present on Admission: No
[2024-09-03] MEDS: FUROSEMIDE 60 MG in SODIUM CHLORIDE 0.9% 50 ML 112 MG IV ×2 (07:45→17:42)
[2024-09-03 08:00] VITALS: BP 128/58; PULSE 48; RESP 16; TEMP 36.7; O2SAT 94
[2024-09-03] MEDS: ENOXAPARIN 40 MG/0.4 ML SYRINGE SUBCUT (09:37)
[2024-09-03 12:00] VITALS: BP 138/71; PULSE 69; RESP 16; TEMP 36.2; O2SAT 96
[2024-09-03] MEDS: TAMSULOSIN 0.4 MG CAPSULE PO (12:11)
[2024-09-03] MEDS: BISACODYL 10 MG SUPP PR (12:14)
--- NOTE | 2024-09-03 15:52 | CM.DANOTE ---
Initial DCP Assessment Note Pt is an 79yo male, resident of [place], admitted INPT for management of CHF PCP: Unknown Payer: [employer] Reviewed chart, pt discussed in multidisciplinary rounds this morning. DELFIN 09/04. Patient lives independently with spouse and plans to return home upon discharge. Close outpatient follow up will be recommended. No barriers identified at this time to patient's safe discharge home w/family to assist; close outpatient f/u recommended. CM team will plan to follow clinical course closely in case any DC needs or concerns arise. BILL Soni Discharge Planning/Care Management CM Discharge Assessment Start: 09/03/24 15:50 Freq: Status: Active Protocol: Document 09/03/24 15:50 RIRI (Rec: 09/03/24 15:52 RIRI [id number]) Discharge Planning Assessment Assigned [employer] BILL Tate DPOA/Assigned Designee Name Jud Vora, SO Contact Information [phone] Advance Directives? No History Provided By Patient,Significant Other, Medical Record Prior Living Arrangements House Household Members spouse Type of transporation used prior to Drives own vehicle admit Independent with ADL's Yes Is patient alert and oriented? Yes Barriers to Discharge No Discharge Plan Home Transportation Arrangement SO Referrals Initiated None needed
--- NOTE | 2024-09-03 15:56 | PC.NURSE ---
Patient is A&OX4, VSS, (bradycardic w/ pacemaker) he denies dizzines, CP, SOB. Still w/BLE's +2-3 edema, weeping less today. He denies pain and has adequate po intake. Diuresing well with Ureña catheter in place. Today he is started on Flomax. He is able to ambulate with steady gait, SBA to BR. He denies needing any assistive devices.
[2024-09-03 16:00] VITALS: BP 148/80; PULSE 56; RESP 17; TEMP 37; O2SAT 98
[2024-09-03 20:00] VITALS: BP 127/57; PULSE 64; RESP 20; TEMP 36; O2SAT 98
[2024-09-04] VITALS: BP 103/46; PULSE 67; RESP 18; TEMP 35.9; O2SAT 95
[2024-09-04 04:00] VITALS: BP 100/38; PULSE 56; RESP 18; TEMP 36; O2SAT 99
[2024-09-04 06:00] VITALS: O2SAT 96
[2024-09-04 06:55] LABS: Add Manual Diff / Slide Review NO; Basophils Absolute Auto 0 /uL (0-100); Basophils Percent Auto 0.6 % (0-2); Eosinophils Absolute Auto 100 /uL (0-450); Eosinophils Percent Auto 2.3 % (2-4); Hematocrit 32.5 % (41-53); Hemoglobin 10.8 g/dL (13.5-17.5); Lymphocytes Absolute Auto 1200 /uL (1100-4500); Lymphocytes Percent Auto 27.4 % (25-40); Mean Corpuscular HGB Conc 33.1 % (30-36); Mean Corpuscular Hemoglobin 29.9 PG (26-34); Mean Corpuscular Volume 90.3 fL (80-100); Monocytes Absolute Auto 500 /uL (0-900); Monocytes Percent Auto 11.8 % (3-14); Neutrophils Absolute Auto 2500 /uL (1500-7000); Neutrophils Percent Auto 57.9 % (50-75); Platelet Count 124 X10^3/uL (150-400); Red Cell Distribution Width 15.6 % (11.6-14.8); White Blood Cell Count 4.3 X10^3/uL (4.5-11.0)
[2024-09-04 07:01] LABS: BUN Creatinine Ratio 12.7 (6-22); Blood Urea Nitrogen 13 mg/dL (9-20); Calcium 8.7 mg/dL (8.4-10.2); Carbon Dioxide 31 mmol/L (22-32); Chloride 96 mmol/L (98-107); Estimated Glomerular Filt Rate > 60 mL/min (>60); Glucose 109 mg/dL (80-110); HEMOLYSIS < 15 (0-50); Potassium 3.4 mmol/L (3.4-5.1); Sodium 134 mmol/L (137-145)
[2024-09-04 08:00] VITALS: BP 117/53; PULSE 75; RESP 16; TEMP 36.3; O2SAT 99
[2024-09-04] MEDS: TAMSULOSIN 0.4 MG CAPSULE PO (09:37)
[2024-09-04] MEDS: ENOXAPARIN 40 MG/0.4 ML SYRINGE SUBCUT (09:38)
[2024-09-04 12:00] VITALS: BP 116/55; PULSE 71; RESP 15; TEMP 36.3; O2SAT 96
--- NOTE | 2024-09-04 14:47 | P.DS_ITS ---
History of Present Illness History of Present Illness Chief complaint: isn't peeing as much, SOB Narrative: The patient was an 79-year-old male with a history of pacemaker for bradycardia as well as probable heart failure. He was had increased volume retention since last summer. He was seen in the ED several days ago and diuresed and given oral diuretics. He was followed by Cardiology in [place], where he spends the hub[place]. The patient presents now with inability to urinate, constipation, as well as increased edema of legs and weeping. He has a lot of dyspnea on exertion but denies prominent orthopnea. No chest pain or palpitations. He was not had an echo in this area, and there is no echo data available to review for an indication of his cardiac function. He denies recent missed medications although it is unclear if he really is taking regular medications for his heart. He was given oral Lasix 3 days ago in the ED to take home and continue diuresis. He spends his hubbard in [place], and lives on [facility] the rest of the year. 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 He was full resuscitation, this is confirmed today. A CT scan was obtained in the ED and July 20, notable for bilateral pleural effusions. He does have chronic constipation and this is recently been getting worse. He also has symptoms of urinary retention including difficulty urinating and prolonged time to urinate. No hematuria, or dysuria. He did have a colonoscopy in 2004 with polyps removed. He notes he was a difficult time getting his stool to come out and I regular basis and to have adequate volume. Discharge Providers Provider Date of admission: 09/02/24 18:07 Discharge Date: 09/04/24 Primary care physician: Doctor Richard MD Consults: None Discharge provider: Lee Logan MD Summary Hospital Course Discharge Diagnosis: 1. Acute diastolic heart failure with anasarca. Present on admission and improved. 2. Atrial fibrillation, rate controlled. Present on admission and active. 3. Anasarca, present on admission and active. 4. Urinary retention, present on admission and active. 5. Abnormal liver function tests with a bilirubin of 1.7, present on admission and active. 6. Pacemaker, present on admission and stable. 7. Pulmonary HTN (unclear type), Present on admission and active. 8. Probable SHANKAR, Present on admission and active. 9. Groin alfredo, Present on admission and active. Hospital Course: He presented with dyspnea and anasarca. He was diuresed with good improvement of his leg edema and breathing. An echo revealed EF of 55-60% with normal LV systolic function. His septal motion was consistent with a conduction abnormality. The right ventricle was mildly dilated with normal function and an elevated systolic pressure of 65 with a right atrial pressure of 15. There was also moderate aortic tricuspid regurgitation. He did desaturate at night consistent with SHANKAR. He notes he was been urged to be evaluated for SHANKAR. He also has atrial fibrillation and a pacemaker. He likes to have his medications primarily handled by his treatment technician in [place]. He returns to [place] in the next several days and we will be seeing his treatment technician relatively soon. He does have indication for anticoagulation but this will be left to his treatment technician. He was okay starting Lasix at a higher dose of 40 daily. Also did have some evidence of retention would be started on Flomax. He will be given potassium supplementation as well as nystatin for Alfredo in the groin. Exam Vital Signs (past 8 hours): - 09/04/24 08:00 09/04/24 12:00 Temperature 97.3 F L 97.3 F L Pulse Rate 75 71 Respiratory Rate 16 15 Blood Pressure 117/53 L 116/55 L Pulse Oximetry 99 96 Oxygen Flow Rate 3.5 0 Oxygen Delivery Method Room Air Oxygen Flow Rate 0 Objective ECG Impression: Atrial fibrillation with slow ventricular response Left axis deviation Possible Anterior infarct , age undetermined Imaging Multiple studies:: Radiologist's impression: Chest x-ray: Cardiomegaly with interstitial prominence and a right-sided pleural effusion. These imaging findings are progressed compared to the prior. CHF is suspected. Echo: An echo revealed EF of 55-60% with normal LV systolic function. His septal motion was consistent with a conduction abnormality. The right ventricle was mildly dilated with normal function and an elevated systolic pressure of 65 with a right atrial pressure of 15. There was also moderate aortic tricuspid regurgitation. Labs 09/04/24 05:59 09/04/24 05:59 Labs: Laboratory Results - last 24 hr 09/04/24 05:59 WBC 4.3 L RBC 3.60 L Hgb 10.8 L Hct 32.5 L MCV 90.3 MCH 29.9 MCHC 33.1 RDW 15.6 H Plt Count 124 L Neut % (Auto) 57.9 Lymph % (Auto) 27.4 [place] % (Auto) 11.8 Eos % (Auto) 2.3 Baso % (Auto) 0.6 Neut # (Auto) 2500 Lymph # (Auto) 1200 [place] # (Auto) 500 Eos # (Auto) 100 Baso # (Auto) 0 Sodium 134 L Potassium 3.4 Chloride 96 L Carbon Dioxide 31 BUN 13 Creatinine 1.02 Estimated GFR > 60 BUN/Creatinine Ratio 12.7 Glucose 109 Calcium 8.7 PFSH Medical History Pacemaker Social History household members: spouse Smoking Status: Former smoker alcohol intake: current Discharge Assessment & Plan Assessment and Plan Assessment: 1. Acute diastolic heart failure with anasarca. Present on admission and improved. 2. Atrial fibrillation, rate controlled. Present on admission and active. 3. Anasarca, present on admission and active. 4. Urinary retention, present on admission and active. 5. Abnormal liver function tests with a bilirubin of 1.7, present on admission and active. 6. Pacemaker, present on admission and stable. 7. Pulmonary HTN (unclear type), Present on admission and active. 8. Probable SHANKAR, Present on admission and active. 9. Groin alfredo, Present on admission and active. Plan of Treatment: He was discharged on medications including Lasix, potassium, Flomax and nystatin powder for his groin. He returns to [place] over the next several days and we will follow up with his treatment technician in [place]. Discharge Plan Discharge Plan Provider Discharge Comment: Stable for discharge home. Close follow up with primary care and treatment technician. Discharge orders & Medications Discharge Orders: Discharge (Order); Ordered 09/04/24 Ordered By: Lee Logan Prescriptions: New tamsulosin [Flomax] 0.4 mg Capsule 0.4 mg PO DAILY Qty: 30 0RF furosemide [Lasix] 40 mg tablet 40 mg PO DAILY Qty: 30 0RF potassium chloride 10 mEq capsule, extended release 10 meq PO DAILY Qty: 30 0RF nystatin 100,000 unit/gram powder 1 applic topical BID Qty: 60 0RF Rx Instructions: to groin Continued acetaminophen [Tylenol] 325 mg Tablet 650 mg PO Q6H PRN (Reason: Pain (Scale Score 1-3)) aspirin 325 mg Tablet 325 mg PO DAILY Discontinued furosemide [Lasix] 20 mg tablet 20 mg PO DAILY Qty: 14 0RF Medication counseling provided by Pharmacist: No Follow up/Referrals: Richard,MD Wilson [Primary Care Provider] - Discharge Health Status Multidrug resistant organism: No MDRO Diet/Activity/Treatments Diet: Diet as Tolerated Activity: As tolerated. Visit Report/Discharge Packet Instructions: DI for Heart Failure Stand Alone Forms: Patient Portal/API Discharge Data Primary Care Provider: Doctor Richard Quality VTE Deep Vein Thrombosis/Pulmonary Embolism Present on Admission: No
[2024-09-04] MEDS: POTASSIUM CHLORIDE 20 MEQ TAB 40 MEQ PO (15:38)
--- NOTE | 2024-09-04 16:20 | CM.MNRNOTE ---
Patient is A&OX4, VSS, afebrile on RA. Diastolic BP low this a.m. and a.m. lasix held. Patient has palomino catheter removed at approximately 11 a.m. and is able to void small amounts of dark vinay urine. PVR= 20 cc. BLE's +2 edema, started weeping this afternoon. Patient is eager and anxious to discharge home today. MD cleared patient to discharge home with close follow up with PCP, and new medications. He verbalizes understanding of reduced salt intake, weighing himself, medications and follow up apointments. He is escorted via w/ch by RN to his private vehicle to discharge home today with all of his personal belongings at approximately 1600.
== END 2024-09-04 15:45 | disposition home or self-care (01) | DRG 292 ==
LOC: ED 15:33 → AC 18:08
PROVIDERS: Admitting Provider Hospitalist; Emergency Provider Emergency Medicine; Family Provider Internal Medicine; Referring Provider Emergency Medicine; Visit Provider Hospitalist
DX: I50.31 Acute diastolic (congestive) heart failure (principal); B37.89 Other sites of candidiasis; R60.0 Localized edema; R10.9 Unspecified abdominal pain; I48.91 Unspecified atrial fibrillation; R33.9 Retention of urine, unspecified; R94.5 Abnormal results of liver function studies; I27.20 Pulmonary hypertension, unspecified; G47.33 Obstructive sleep apnea (adult) (pediatric); I07.1 Rheumatic tricuspid insufficiency; Z79.82 Long term (current) use of aspirin; Z95.0 Presence of cardiac pacemaker; Z87.891 Personal history of nicotine dependence
CPT/HCPCS: 36415; 51798; 71045; 80048; 80053; 81003; 82550; 83605; 83880; 84484; 85025; 85610; 93005; 93306; 96365; 99283; 99284; 99285; J1650; J1940